=== PATIENT | male | born 1940 | race Caucasian/White ===

== ENCOUNTER 2018-10-29 16:18 | Emergency (ER) | payer MEDICARE ==
[~2018-10-29] VITALS: Ht 182.9 cm; Wt 91.0 kg
[2018-10-29 18:55] VITALS: BP 165/73
== END 2018-10-29 19:06 | disposition home or self-care (01) ==
LOC: ER 16:18
DX: F41.9 Anxiety disorder, unspecified (principal); F40.240 Claustrophobia; I10 Essential (primary) hypertension; G20 Parkinson's disease; Z95.0 Presence of cardiac pacemaker
CPT/HCPCS: 99284